=== PATIENT | female | born 1985 | race Caucasian/White ===

== ENCOUNTER 2019-06-26 18:04 | Inpatient (IN) | payer OTHER, SELFPAY ==
[2019-06-26 18:44] VITALS: BMI 33.0
[2019-06-26 18:46] VITALS: BP 100/44; PULSE 84
--- NOTE | 2019-06-26 19:09 | PC.NURSE ---
1845 pt into room from ambulance for admittance. pt delivered 1358 at another facility. pt is sleepy and takes many shakes to arouse her. states her pain is at a 10. pt refuses ibuprofen stating it wont even touch her pain. it is difficult to get patient to answer question directly without more arousal.
--- NOTE | 2019-06-26 19:11 | PC.NURSE ---
pt walked out of room to go smoke a cigarette. pt educated on smoking policy. Pt stated youll have to stop me, Im going .
--- NOTE | 2019-06-26 19:22 | OBPPTRN ---
Patient admitted to room 103 for admittance to unit. delivered at another facility. oriented on room, policies and procedure.
[2019-06-26 19:33] VITALS: TEMP 36.6
[2019-06-26] MEDS: IBUPROFEN 600 MG TABLET PO (19:33)
[2019-06-26 20:01] LABS: Basophils Percent Auto 0.2 % (0.2-1.2); Eosinophils Percent Auto 0.3 % (0-4.4); Hematocrit 31.4 % (37.0-47.0); Immature Granulocyte Absolute 0.05 K/mm3 (0.00-0.031); Immature Granulocyte Percent A 0.4 % (0-0.5); Lymphocytes Percent Auto 12.5 % (18.3-44.2); Mean Corpuscular HGB Conc 31.8 g/dl (32-36); Mean Corpuscular Hemoglobin 24.8 pg (26-34); Mean Corpuscular Volume 77.7 fl (80-100); Mean Platelet Volume 10.4 fl (7.4-10.4); Monocytes Absolute Auto 0.6 K/mm3 (0.1-0.6); Monocytes Percent Auto 4.5 % (2.6-8.5); Neutrophils Absolute Auto 11.2 K/mm3 (1.3-6.7); Neutrophils Percent Auto 82.1 % (45.5-73.1); Platelet Count Result 237 k/mm3 (150-375); Red Blood Count 4.04 M/mm3 (4.2-5.4); Red Cell Distribution Width 15.9 % (11.5-14.5); White Blood Count 13.6 K/mm3 (4.5-10.0)
--- NOTE | 2019-06-26 20:55 | OBPPTRN ---
Patient transferred to post room #292 via wheelchair - arrived via crib. Support person present. Oriented to unit, room, information board, rooming in, admission packet and security measures. Patient verbalizes understanding.
[2019-06-26 20:56] LABS: HIV 1/2 Ab P24 Ag Result Negative (Negative)
[2019-06-26 21:18] VITALS: BP 111/72; PULSE 70; RESP 18; TEMP 36.7
[2019-06-27] MEDS: IBUPROFEN 600 MG TABLET PO ×3 (05:39→18:34)
[2019-06-27 05:41] LABS: Hematocrit 30.2 % (37.0-47.0); Hemoglobin 9.5 g/dL (12.0-15.0)
[2019-06-27 07:21] LABS: Rapid Plasma Reagin Non-Reactive (NonReactive)
[2019-06-27 08:00] VITALS: BP 121/69; PULSE 86; RESP 16; TEMP 36.2
[2019-06-27] MEDS: POLYSACCHARIDE IRON COMPLEX 150 MG CAPSULE PO ×2 (08:41→18:36)
--- NOTE | 2019-06-27 11:46 | PC.NURSE ---
Urine obtained and sent to lab
--- NOTE | 2019-06-27 12:00 | PM.IMHP ---
H&P: HPI History of Present Illness Chief complaint: delivery Narrative: 33 y/o with care at [facility] for history of stillbirth x 3. Says her course was complicated by low AFV. She had abdominal pain on the evening of 06/24, so her mother gave her a xanax and a [place]. The following day she realized she was in labor and presented to the ED at [facility], where she delivered. Dr. Mcfarland attended. Because [facility] is on diversion, she was transferred here to [facility]. Had of a boy at 1358 on 06/26/19. He weighed 6 lbs, with APGARs of 8 and 8 at 1 and 5 minutes. EBL 350mL. Perineum intact. Bottle feeding. Desires circumcision for son. Review of Systems Review of Systems: All systems reviewed & are unremarkable except as noted in HPI and below PMFSH Social History Social History Years smoked: 10 Smoking status: Heavy tobacco smoker Tobacco type: cigarettes Second hand tobacco smoke exposure: Yes Alcohol intake: former Substance use: current Substance use type: marijuana Living arrangements: with family Occupation/Education: unemployed Gender identity (if verbalized by the patient): Female Spiritual care concerns: No Agree to blood products: No Meds Home Medications and Allergies Allergies Allergy/AdvReac Type Severity Reaction Status Date / Time amoxicillin AdvReac Other Verified 06/26/19 19:00 hydromorphone [From Dilaudid] AdvReac Other Verified 06/26/19 19:01 ketorolac [From Toradol] AdvReac Other Verified 06/26/19 19:02 Penicillins AdvReac Other Verified 06/26/19 19:01 tramadol AdvReac Other Verified 06/26/19 19:02 Vital Signs Vital Signs - 24 hr 06/26/19 18:46 06/26/19 19:33 06/26/19 21:18 Temperature 36.6 C 36.7 C Pulse Rate 84 70 Respiratory Rate 18 Blood Pressure 100/44 L 111/72 06/27/19 08:00 Temperature 36.2 C L Pulse Rate 86 Respiratory Rate 16 Blood Pressure 121/69 Exam Const: Orientation/consciousness: patient oriented x3 Other: Well-developed, well-nourished female in no acute distress. Neck: Thyroid: thyroid normal Lymphatic: no lymphadenopathy noted (in neck, axilla or inguinal nodes) Resp: Effort & Inspection: normal respiratory effort Auscultation: clear to auscultation bilaterally Cardio: Rate: regular rate Rhythm: regular rhythm Heart sounds: S1 normal heart sound present and S2 normal heart sound present GI: Other: ABD: Soft, nontender, fundus firm. : General: Yes no CVA tenderness Other: Deferred. Back/Spine/Pelvis: Back: no CVA tenderness Skin: General skin exam: normal color and no rashes or lesions noted Neuro: General: patient oriented x3 Extrem: Other: Extremities: nontender with no edema Psych: Mental Status: mental status grossly normal Affect: normal affect H&P: Results Labs Labs: Short CBC 06/26/19 06/27/19 Range/Units 19:55 05:36 WBC 13.6 H (4.5-10.0) K/mm3 Hgb 10.0 L 9.5 L (12.0-15.0) g/dL Hct 31.4 L 30.2 L (37.0-47.0) % Plt Count 237 (150-375) k/mm3 Assessment and Plan Assessment and plan (1) Normal delivery at term: Code(s): O80 - Encounter for full-term uncomplicated delivery Status: Acute Assessment and Plan: A: PPD#1, doing well. P: Routine care. Reviewed circumcision.
[2019-06-27 12:34] LABS: Amphetamine Screen Urine Negative (Negative); Barbiturate Screen Urine Negative (Negative); Benzodiazepines Screen Urine Positive (Negative); Cannabinoid Screen Urine Positive (Negative); Cocaine Screen Urine Negative (Negative); Methadone Screen Urine Negative (Negative); Opiate Screen Urine Positive (Negative); Phencyclidine Screen Urine Negative (Negative)
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
--- NOTE | 2019-06-27 17:43 | P.DS_ITS ---
DS: Diagnosis Admitting Diagnosis Admitting Diagnosis: Delivery at outside facility. OB - DS: Summary OB Procedures : None OB Procedures Intrapartum: Other OB Procedures: : None DS: Data Data Completed and Pending Labs on day of discharge: Labs from last 24 hours 06/27/19 06/27/19 06/26/19 12:04 05:36 19:55 WBC RBC Hgb 9.5 L Hct 30.2 L MCV MCH MCHC RDW Plt Count MPV Immature Gran % (Auto) Neut % (Auto) Lymph % (Auto) [place] % (Auto) Eos % (Auto) Baso % (Auto) Lymph # (Auto) [place] # (Auto) Eos # (Auto) Baso # (Auto) Abs Immat Gran (auto) Absolute Neuts (auto) Absolute Nucleated RBC Nucleated RBC % Urine Opiates Screen Positive A Urine Methadone Screen Negative Ur Barbiturates Screen Negative Ur Phencyclidine Scrn Negative Ur Amphetamine Screen Negative U Benzodiazepines Scrn Positive A Urine Cocaine Screen Negative U Cannabinoids Screen Positive A RPR HIV 1&2 Ab/P24 Ag 4thGn Blood Type A Positive Antibody Screen Negative 06/26/19 06/26/19 06/26/19 19:55 19:55 19:55 WBC 13.6 H RBC 4.04 L Hgb 10.0 L Hct 31.4 L MCV 77.7 L MCH 24.8 L MCHC 31.8 L RDW 15.9 H Plt Count 237 MPV 10.4 Immature Gran % (Auto) 0.4 Neut % (Auto) 82.1 H Lymph % (Auto) 12.5 L [place] % (Auto) 4.5 Eos % (Auto) 0.3 Baso % (Auto) 0.2 Lymph # (Auto) 1.70 [place] # (Auto) 0.6 Eos # (Auto) 0.0 Baso # (Auto) 0.0 Abs Immat Gran (auto) 0.05 H Absolute Neuts (auto) 11.2 H Absolute Nucleated RBC 0.0 Nucleated RBC % 0.0 Urine Opiates Screen Urine Methadone Screen Ur Barbiturates Screen Ur Phencyclidine Scrn Ur Amphetamine Screen U Benzodiazepines Scrn Urine Cocaine Screen U Cannabinoids Screen RPR Non-reactive HIV 1&2 Ab/P24 Ag 4thGn Negative Blood Type Antibody Screen Discharge Plan Discharge Attending physician on discharge: Lenin Giang Discharging Clinician: Lenin Giang Patient Disposition: Home, Self-Care Activity: pelvic rest Diet: regular Discharge Instructions: Call or return if temperature above 100.4? F, increased abdominal pain, increased vaginal bleeding or any new problems. Stand Alone Forms: General Discharge Information Follow-up/Referrals: Lenin Giang MD [Physician] - (Follow up with usual provider at [facility].) Discharge Medications: New ibuprofen 600 mg tablet 600 mg PO Q6H PRN (Reason: cramps) Qty: 30 RF: 0 Date of admission: 06/26/19 18:04 Primary Care Provider: UNKNOWN,DOCTOR Admitting Provider: Lenin Giang Attending physician on admission: Lenin Giang
--- NOTE | 2019-06-27 19:36 | PC.NURSE ---
Pt viewed the mother baby care discharge DVD . All questions answered
[2019-06-27 19:38] VITALS: BP 120/81; PULSE 85; RESP 12; TEMP 36.7
[2019-06-28] MEDS: ACETAMINOPHEN 325 MG TABLET 650 MG PO ×3 (00:22→17:40)
[2019-06-28] MEDS: IBUPROFEN 600 MG TABLET PO ×3 (00:22→17:41)
[2019-06-28] MEDS: POLYSACCHARIDE IRON COMPLEX 150 MG CAPSULE PO ×2 (07:12→17:40)
[2019-06-28] MEDS: DOCUSATE SODIUM 100 MG CAPSULE PO (07:12)
[2019-06-28 07:26] VITALS: BP 109/56; PULSE 72; RESP 18; TEMP 36.8
--- NOTE | 2019-06-28 08:00 | PC.NURSE ---
Patient viewed the discharge video Mother & Baby Care, The First Two Weeks . Patient was given the opportunity and encouraged to ask questions. Patient verbalized understanding of information shared and has been given the mother/baby guide for home reference.
--- NOTE | 2019-06-28 08:51 | P.PNOB_ITS ---
OB - PN: Subj Subjective Date/time seen: 06/28/19 08:51 Narrative: Pain OK. Would like to go home. OB - PN: Obj Data Labs CBC & Chem 7: 06/27/19 05:36 Labs: Laboratory Results - last 24 hr 06/27/19 12:04 Urine Opiates Screen Positive A Urine Methadone Screen Negative Ur Barbiturates Screen Negative Ur Phencyclidine Scrn Negative Ur Amphetamine Screen Negative U Benzodiazepines Scrn Positive A Urine Cocaine Screen Negative U Cannabinoids Screen Positive A OB - PN A/P Plan Comments: A: PPD#2, doing well. P: Home to f/u as she has scheduled at [facility]. Exam Psych: Other: AVSS ABD soft, nontender, fundus firm EXT nontender
--- NOTE | 2019-06-28 09:20 | PCCCNOTE ---
Care Coordination called DCFS again this morning, they were still unable to take report at this time. Care Coordination verified that they are still on the call-back list.Will follow.
--- NOTE | 2019-06-28 13:00 | PC.NURSE ---
Self care and infant discharge instructions given to mother including follow up visit date and time. Mother verbalized understanding. Very pleasant and cooperative.
--- NOTE | 2019-06-28 16:00 | PC.NURSE ---
Genoveva from [facility] here to see pt.
--- NOTE | 2019-06-28 17:37 | PCCCNOTE ---
Left report with [facility], intake number [id number]. Care Coordination met with [facility] Vehicle Maintenance Technician who spoke with the pt. and her family. [facility] will either create a safety contract or take custody of the child. Will follow.
== END 2019-06-28 18:35 | disposition home or self-care (01) | DRG 561 ==
LOC: ANHLDR 18:33 → ANHOB2 20:56
PROVIDERS: Admitting Provider Obstetrics & Gynecology; Visit Provider Obstetrics & Gynecology
DX: Z39.0 Encounter for care and examination of mother immediately after delivery (principal); O99.325 Drug use complicating the puerperium; F12.10 Cannabis abuse, uncomplicated; O99.335 Smoking (tobacco) complicating the puerperium; F17.210 Nicotine dependence, cigarettes, uncomplicated
CPT/HCPCS: 36415; 80307; 85014; 85018; 85025; 86592; 86703; 86850; 86900; 86901; A9270; G0432

== ENCOUNTER 2020-06-14 16:47 | Emergency (ER) | payer OTHER, SELFPAY ==
[2020-06-14 16:40] VITALS: BP 112/72; PULSE 80; RESP 17; TEMP 36.3; O2SAT 100
--- NOTE | 2020-06-14 16:50 | ECG_ITS ---
Measurements Intervals [place] Rate: 73 P: 67 UT: 131 QRS: 90 QRSD: 89 T: 6 QT: 376 QTc: 415 Interpretive Statements SINUS RHYTHM BORDERLINE ST-T WAVE ABNORMALITY- INFERIOR LEADS BASELINE ARTIFACT- I, II, III, AVR, AVL, AVF, V1-V2 BORDERLINE ECG Electronically Signed On 06-15-2020 8:30:09 ART LIBRARIAN by Jed Vega D.O.
[2020-06-14] MEDS: EPINEPHrine HCL INJ 1 MG/ML AMPUL 0.3 MG IM (17:05)
[2020-06-14] MEDS: methylPREDNISolone SOD SUCC 125 MG VIAL IV PUSH (17:05)
[2020-06-14] MEDS: LORazepam (*CRX) 0.5 MG TABLET 1 MG PO (17:06)
--- NOTE | 2020-06-14 17:14 | ED.ALLEREA ---
HPI - Allergic Reaction General Chief complaint: Allergic Reaction Stated complaint: allergic reaction Source: patient and EMS Mode of arrival: EMS Limitations: no limitations History of Present Illness HPI narrative: Patient presents with sudden onset of skin rash, itching to throat and anxiety started 30 minutes after eating. Patient reported history of allergy to medicine does not know the name right now. Patient received 50 mg of Benadryl IV prior to arrival. Currently feeling a little better but the itching and rash are coming back. Patient denies difficulty swallowing or breathing. History of panic attacks Related Data Allergies Allergy/AdvReac Type Severity Reaction Status Date / Time amoxicillin AdvReac Other Verified 06/26/19 19:00 hydromorphone [From Dilaudid] AdvReac Other Verified 06/26/19 19:01 ketorolac [From Toradol] AdvReac Other Verified 06/26/19 19:02 Penicillins AdvReac Other Verified 06/26/19 19:01 tramadol AdvReac Other Verified 06/26/19 19:02 Review of Systems Review of Systems: Narrative: CONSTITUTIONAL: Denies fever, chills, or sweats. EYES: Denies visual changes, redness, or discharge. ENT: Denies rhinorrhea, congestion, sore throat, or otalgia. CARDIOVASCULAR: Denies chest pain, palpitations, or edema. RESPIRATORY: Denies cough or dyspnea. GASTROINTESTINAL: Denies abdominal pain, nausea, vomiting, or diarrhea. GENITOURINARY: Denies dysuria or hematuria. SKIN: Denies rash or itching. MUSCULOSKELETAL: Denies back pain, joint pain, or myalgia. NEUROLOGIC: Denies headache, numbness, or weakness. PSYCHIATRIC: Denies anxiety or depression. PMFSH Social History Social History Years smoked: 10 Smoking status: Heavy tobacco smoker Tobacco type: cigarettes Second hand tobacco smoke exposure: Yes Alcohol intake: former Substance use: current Substance use type: marijuana Gender identity (if verbalized by the patient): Female Spiritual care concerns: No Agree to blood products: No Exam Narrative: Exam Narrative: General appearance: Well-developed, well-nourished Skin: Scattered hives all over, normal-sized lips and tongue Head: Normocephalic, nontraumatic Eyes: Clear conjunctiva ENT: Oropharynx normal, ears normal, nose normal Neck: Supple, nontender Chest and respiratory: Airway patent, no respiratory distress, no accessory muscle use Heart: Regular rate/rhythm Abdomen: Soft, nontender, no organomegaly, quiet bowel sounds Vascular: Normal peripheral pulses, normal capillary refill. Musculoskeletal: Normal range of motion, nontender back Neurologic: Alert and oriented ?3, GROUP EXERCISE CLASS INSTRUCTOR is normal as tested, no gross motor deficit Course Course Emergency Course: Stable Vital Signs Vital signs: Vital Signs Temperature 36.3 C L 06/14/20 16:40 Pulse Rate 80 06/14/20 16:40 Respiratory Rate 17 06/14/20 16:40 Blood Pressure 112/72 06/14/20 16:40 Pulse Oximetry 100 06/14/20 16:40 Temperature 36.3 C L 06/14/20 16:40 Pulse Rate 81 06/14/20 17:47 Respiratory Rate 25 H 06/14/20 17:47 Blood Pressure 115/50 L 06/14/20 17:47 Pulse Oximetry 97 06/14/20 17:47 MDM - Allergic Reaction MDM Narrative Medical decision making narrative: Food allergy. Solu-Medrol 125 mg IV, epinephrine 0.3 mg IM ordered. Further plan to follow Critical Care Time Critical Care Time Critical Care Time: Yes Total Critical Care Time: 15 Discharge Plan Discharge Clinical Impression: Allergic reaction Patient Disposition: Home, Self-Care Condition: Improved Instructions: Acute Rash (ED), General Allergic Reaction (ED) Additional Instructio
[2020-06-14 17:47] VITALS: BP 115/50; PULSE 81; RESP 25; O2SAT 97
== END 2020-06-14 18:14 | disposition home or self-care (01) ==
PROVIDERS: Emergency Provider Emergency Medicine
DX: T78.40XA Allergy, unspecified, initial encounter (principal); R94.31 Abnormal electrocardiogram [ECG] [EKG]; F17.210 Nicotine dependence, cigarettes, uncomplicated
CPT/HCPCS: 93005; 96372; 96374; 99284; A9270; J0171; J2930

== ENCOUNTER 2020-08-01 17:21 | Emergency (ER) | payer OTHER, SELFPAY ==
[2020-08-01 17:54] VITALS: BP 117/68; PULSE 95; RESP 16; TEMP 36.8; O2SAT 100
[2020-08-01 18:28] LABS: Basophils Percent Auto 0.4 % (0.2-1.2); Eosinophils Absolute Auto 0.1 K/mm3 (0-0.3); Eosinophils Percent Auto 0.9 % (0-4.4); Hematocrit 38.1 % (37.0-47.0); Immature Granulocyte Absolute 0.05 K/mm3 (0.00-0.031); Immature Granulocyte Percent A 0.5 % (0-0.5); Lymphocytes Absolute Auto 2.25 K/mm3 (0.9-3.2); Lymphocytes Percent Auto 22.9 % (18.3-44.2); Mean Corpuscular HGB Conc 31.5 g/dl (32-36); Mean Corpuscular Hemoglobin 25.6 pg (26-34); Mean Corpuscular Volume 81.2 fl (80-100); Mean Platelet Volume 11.2 fl (7.4-10.4); Monocytes Percent Auto 10.4 % (2.6-8.5); Neutrophils Absolute Auto 6.4 K/mm3 (1.3-6.7); Neutrophils Percent Auto 64.9 % (45.5-73.1); Platelet Count Result 278 k/mm3 (150-375); Red Blood Count 4.69 M/mm3 (4.2-5.4); Red Cell Distribution Width 18.2 % (11.5-14.5); White Blood Count 9.8 K/mm3 (4.5-10.0)
[2020-08-01 18:34] LABS: Add Urine Microscopic? YES; Appearance Urine Cloudy (Clear); Bacteria Urine Trace /hpf; Bilirubin Urine Negative (Negative); Blood Urine Negative (Negative); Color Urine Yellow (Yellow); Glucose Urine UA Negative (Negative); Ketones Urine Negative (Negative); Leukocyte Esterase Ur Trace LEU/UL (Negative); Mucus Urine Rare /lpf; Nitrate Urine Positive (Negative); Protein Urine 2+ mg/dL (Negative); Specific Grav Ur 1.016 (1.001-1.035); Squamous Epithelial Cell Urine Many /hpf (Few)
[2020-08-01 18:40] LABS: Alanine Aminotransferase 15 U/L (4-35); Albumin Level 4.4 g/dL (3.5-5.1); Alkaline Phosphatase 77 U/L (38-126); Anion Gap 7 mmol/L (8-16); Aspartate Amino Transferase 23 U/L (14-36); Bilirubin,Total 0.4 mg/dL (0.2-1.3); Blood Urea Nitrogen 6 mg/dL (7-17); Calcium 9.1 mg/dL (8.4-10.2); Carbon Dioxide 24 mmol/L (22-30); Chloride 105 mmol/L (98-107); Estimated CRCL calculation 94 ml/min; Estimated Glomerular Filt Rate > 60; Glucose 98 mg/dL (65-105); Potassium 3.6 mmol/L (3.4-5.0); Sodium 136 mmol/L (137-145)
--- NOTE | 2020-08-01 19:32 | PC.NURSE ---
pt called multiple times between 1900 and 1929. pt was triaged but not seen by a provider
== END 2020-08-01 19:32 | disposition left against medical advice (07) ==
PROVIDERS: Emergency Provider Emergency Medicine
DX: R10.9 Unspecified abdominal pain (principal)
CPT/HCPCS: 36415; 80053; 81001; 81025; 85025; 87077; 87086; 87088; 87186; 99199